=== PATIENT | male | born 1955 | race Asian ===

== ENCOUNTER 2017-04-14 16:42 | Emergency (ER) | payer OTHER ==
[~2017-04-14] VITALS: Ht 167.6 cm; Wt 76.5 kg
[~2017-04-14 16:42] MED LIST: METO-53
[2017-04-14 16:50] VITALS: Ht 167.6 cm; Wt 76.5 kg
--- NOTE | 2017-04-14 18:49 | RADRPT ---
PROCEDURE: Chest x-ray CLINICAL INDICATION: Chest pain TECHNIQUE: Chest single view COMPARISON: None FINDINGS: The heart is normal in size. The pulmonary vessels are normal in caliber. The lungs are clear. Th e costophrenic angles are sharp. The visualized bony thorax is unremarkable. IMPRESSION: No acute cardiopulmonary disease. RPTAT: HH .Gene Phan MD, Date Time Electronically viewed and signed by .Gene Phan MD, MD on 04/14/2017 18:49 .W/
[2017-04-14 18:59] LABS: BASOPHIL # 0.1 10^3/ul (0.0-0.1); BASOPHILS % 0.8 % (0.0-2.0); EOSINOPHILS # 0.4 10^3/ul (0.0-0.5); EOSINOPHILS % 4.7 % (0.0-7.0); HEMATOCRIT 42.7 % (42.0-52.0); HEMOGLOBIN 15.2 g/dl (14.0-18.0); LYMPHOCYTES # 2.5 10^3/ul (0.8-2.9); LYMPHOCYTES % 29.5 % (15.0-51.0); MEAN CORPUSCULAR HEMOGLOBIN 28.9 pg (29.0-33.0); MEAN CORPUSCULAR HGB CONC 35.6 g/dl (32.0-37.0); MEAN CORPUSCULAR VOLUME 81.2 fl (82.0-101.0); MEAN PLATELET VOLUME 11.2 fl (7.4-10.4); MONOCYTE # 0.7 10^3/ul (0.3-0.9); MONOCYTES % 8.9 % (0.0-11.0); NEUTROPHIL # 4.6 10^3/ul (1.6-7.5); NEUTROPHILS % 55.7 % (39.0-77.0); PLATELET COUNT 227 10^3/UL (140-415); RED BLOOD COUNT 5.26 10^6/ul (4.70-6.10); WHITE BLOOD COUNT 8.3 10^3/ul (4.8-10.8)
[2017-04-14 19:17] LABS: INR 0.86; PROTIME 11.7 Sec (12.2-14.2); PT RATIO 0.9
[2017-04-14 19:18] LABS: PARTIAL THROMBOPLASTIN TIME 26.1 Sec (25.0-35.0)
[2017-04-14 19:22] LABS: ANION GAP 19 (8-16); BLOOD UREA NITROGEN 17 mg/dl (7-20); CALCIUM 9.2 mg/dl (8.4-10.2); CARBON DIOXIDE 24 mmol/L (21-31); CHLORIDE 94 mmol/L (97-110); CREATININE 0.86 mg/dl (0.61-1.24); POTASSIUM 4.2 mmol/L (3.5-5.1); SODIUM 133 mmol/L (135-144)
[2017-04-14 19:38] LABS: GLUCOSE 491 mg/dl (70-220); TROPONIN-I < 0.012 ng/ml (0.00-0.12)
[2017-04-14] MEDS ORDERED: METF1000 PO (20:55)
[2017-04-14] MEDS ORDERED: SITA100T8 PO (20:56)
[2017-04-14] MEDS ORDERED: CARV12.579 PO (20:56)
[2017-04-14] MEDS ORDERED: DAPA10TA PO (20:57)
[2017-04-14] MEDS ORDERED: AMLO-147 PO (20:57)
[2017-04-14] MEDS ORDERED: CLON0.2T5 PO (20:57)
[2017-04-14] MEDS ORDERED: OMEG1CAP2 PO (20:58)
[2017-04-14] MEDS ORDERED: SOD CHLORIDE 0.9% 500 ML IV ONE (21:00)
[2017-04-14] MEDS ORDERED: SOD CHLORIDE 0.9% 1,000 ML IV ONE (21:00)
[2017-04-14 21:26] VITALS: BP 148/82; PULSE 84; RESP 18; TEMP 98.8
--- NOTE | 2017-04-14 23:06 | ERD ---
ER Documentation Chief Complaint Date/Time DATE: 04/14/17 TIME: 23:03 Chief Complaint sent by PCP for abnormal EKG HPI This 61-year-old male was sent for EKG abnormalities from his primary care physician's office. At his PCPs EKG he had ST elevation in multiple leads. Patient denies any symptoms today. He does state that he did not take his diabetic medication today. He did have chest pain occasionally on prior days but none today. He denies shortness of breath. He has absolutely no symptoms whatsoever currently. ROS All systems reviewed and are negative except as per history of present illness. Medications Home Meds Reported Medications [place]-3 Acid Ethyl Esters (Lovaza) 1 Gm Capsule, 1 GM PO BID, CAP 04/14/17 Dapagliflozin Propanediol (Farxiga) 10 Mg Tablet, 10 MG PO DAILY, #30 TAB 04/14/17 Clonidine Hcl* (Clonidine Hcl*) 0.2 Mg Tablet, 0.2 MG PO BID Y for HTN, TAB 04/14/17 Amlodipine Besylate* (Amlodipine Besylate*) 10 Mg Tablet, 10 MG PO BID, #30 TAB 04/14/17 Carvedilol* (Carvedilol*) 12.5 Mg Tablet, 12.5 MG PO BID, #60 TAB 04/14/17 Sitagliptin* (Januvia*) 100 Mg Tablet, 100 MG PO DAILY, #30 TAB 04/14/17 Metformin Hcl* (Metformin Hcl*) 1,000 Mg Tablet, 1000 MG PO WITH BREAKFAST DINNE , #60 TAB 04/14/17 Discontinued Reported Medications Metoprolol (Lopressor) 50 Mg Tablet 10/31/10 Allergies Allergies: Coded Allergies: No Known Drug Allergy (Verified Allergy, Mild, 04/14/17) PMhx/Soc History of Surgery: No Anesthesia Reaction: No Hx Neurological Disorder: No Hx Respiratory Disorders: No Hx Cardiac Disorders: Yes (hypertension, hyperlipidemia and diabetes ) Hx Psychiatric Problems: No Hx Miscellaneous Medical Probl: No Hx Alcohol Use: No Hx Substance Use: No Hx Tobacco Use: No Smoking Status: Never smoker Physical Exam Vitals Vital Signs Date Time Temp Pulse Resp B/P Pulse Ox O2 Delivery O2 Flow Rate FiO2 04/14/17 21:26 98.8 84 18 148/82 100 Room Air 04/14/17 19:44 Nasal Cannula 2 04/14/17 18:51 98.8 84 18 125/84 100 Room Air 04/14/17 16:50 98.8 89 16 178/78 97 Physical Exam Const: [] No distress Head: Atraumatic Eyes: Normal Conjunctiva ENT: Normal External Ears, Nose and Mouth. Neck: Full range of motion..~ No meningismus. Resp: Clear to auscultation bilaterally Cardio: Regular rate and rhythm, no murmurs Abd: Soft, non tender, non distended. Normal bowel sounds Skin: No petechiae or rashes Back: No midline or flank tenderness Ext: No cyanosis, or edema Neur: Awake and alert Psych: Normal Mood and Affect Result Diagram: 04/14/17 1845 04/14/17 1845 Results 24 hrs Laboratory Tests Test 04/14/17 18:45 04/14/17 21:17 White Blood Count 8.310^3/ul Red Blood Count 5.2610^6/ul Hemoglobin 15.2g/dl Hematocrit 42.7% Mean Corpuscular Volume 81.2fl Mean Corpuscular Hemoglobin 28.9pg Mean Corpuscular Hemoglobin Concent 35.6g/dl Red Cell Distribution Width 12.0% Platelet Count 76855^3/UL Mean Platelet Volume 11.2fl Neutrophils % 55.7% Lymphocytes % 29.5% Monocytes % 8.9% Eosinophils % 4.7% Basophils % 0.8% Nucleated Red Blood Cells % 0.0/100WBC Neutrophils # 4.610^3/ul Lymphocytes # 2.510^3/ul Monocytes # 0.710^3/ul Eosinophils # 0.410^3/ul Basophils # 0.110^3/ul Nucleated Red Blood Cells # 0.010^3/ul Prothrombin Time 11.7Sec Prothrombin Time Ratio 0.9 INR International Normalized Ratio 0.86 Activated Partial Thromboplast Time 26.1Sec Sodium Level 133mmol/L Potassium Level 4.2mmol/L Chloride Level 94mmol/L Carbon Dioxide Level 24mmol/L Anion Gap 19 Blood Urea Nitrogen 17mg/dl Creatinine 0.86mg/dl Glucose Level 491mg/dl Calcium Level 9.2mg/dl Troponin I < 0.012ng/ml Bedside Glucose 301mg/dL Current Medications Medications (Trade) Dose Ordered Sig/Cyndi Route PRN Reason Start Time Stop Time Status Last Admin Dose Admin Sodium Chloride 1,000 ml @ 1,000 mls/hr Q1H ONCE IV 04/14/17 21:00 04/14/17 21:30 DC 04/14/17 20:50 Sodium Chloride (NS) 500 ml @ 500 mls/hr Q1H ONCE IV 04/14/17 21:00 04/14/17 21:30 DC 04/14/17 20:51 Procedures/MDM Patient does have EKG changes with suspicion for ischemia. It is not known the duration of these EKG changes patient does not have prior EKGs to compare to. He does have a negative troponin with his chest pain yesterday. Is been asymptomatic today. States he did not take his multiple oral diabetic medications this morning but intends to when he arrives home. Was given a liter of normal saline which did lower his sugar almost 200. No further need for sugar. Has mild hyponatremia likely treated with a liter of normal saline. Patient is otherwise symptomatic and recommending primary care follow-up with instructions for an outpatient echocardiogram to look for any other cardiac abnormalities. Patient definitely does not want to be in the hospital I do not see a good reason for inpatient admission currently. EKG interpretation: Normal sinus rhythm rate of 90, indeterminate axis, T-wave flattening versus inversions in inferolateral leads suspicious for ischemia. Normal intervals monitoring manager interpretation: Normal sinus rhythm without arrhythmia Chest x-ray interpretation: No acute process. I see no widened mediastinum, pneumothorax, no infiltrates, no fractures per Departure Diagnosis: Primary Impression: EKG abnormalities Additional Impressions: Hyperglycemia Chest pain Condition: Stable Patient Instructions: Hyperglycemia (High Blood Sugar), Chest Pain, Uncertain Cause Additional Instructions: Call your primary care doctor TOMORROW for an appointment during the next 1-2 days. Obtain an appointment for an echocardiogram. See the doctor sooner or return here if your condition worsens before your appointment time. MARIYA FRY DO Apr 14, 2017 23:06
== END 2017-04-14 21:30 | disposition home or self-care (01) ==
LOC: E/R 16:42
DX: R94.31 Abnormal electrocardiogram [ECG] [EKG] (principal); E11.65 Type 2 diabetes mellitus with hyperglycemia; R07.9 Chest pain, unspecified; Z79.84 Long term (current) use of oral hypoglycemic drugs
CPT/HCPCS: 36415; 71010; 80048; 82962; 84484; 85025; 85610; 85730; 93005; 99285; J7030; J7040